=== PATIENT | male | born 1955 | race Caucasian/White ===

== ENCOUNTER 2016-11-09 09:27 | Emergency (ER) | payer MEDICARE, BC ==
--- NOTE | 2016-11-09 10:06 | EDM.PDOC ---
ED HISTORY OF PRESENT ILLNESS - General Chief Complaint: Cardiovascular Problem Stated Complaint: [facility] Time Seen by Provider: 11/09/16 09:56 Source: Reports: Patient History Limitations: Reports: No limitations - History of Present Illness INITIAL COMMENTS - FREE TEXT/NARRATIVE: pt arrived with a history of his defribulator has fired off 4 times. he was in the shower started to feel dizzy and his defirillator went off. The last time it went off was about 1 hour ago. Pt receives his care from the [facility]. Timing/Duration: Reports: Hour(s): Severity: moderate Location, General: Reports: chest, other ( defibrilator is going off) Associated Symptoms: Reports: denies other symptoms, other ( Pt was dizzy prior to the last time he was defibrilated. ) - Related Data Allergies/ADRs: Allergies Allergy/AdvReac Type Severity Reaction Status Date / Time acetaminophen [From [place]] Allergy Vomiting Verified 11/09/16 10:39 amiodarone Allergy Other Verified 11/09/16 10:39 amlodipine Allergy Other Verified 11/09/16 10:39 clopidogrel Allergy Cannot Verified 11/09/16 10:39 Remember ezetimibe [From [place]] Allergy Nausea Verified 11/09/16 10:39 flecainide Allergy Anaphylactic Verified 11/09/16 10:39 Shock hydrocodone [From [place]] Allergy Vomiting Verified 11/09/16 10:39 mexiletine Allergy Rash Verified 11/09/16 10:39 morphine Allergy Vomiting Verified 11/09/16 09:36 mushroom Allergy Vomiting Verified 11/09/16 10:39 rosuvastatin Allergy Pain Verified 11/09/16 10:39 sotalol Allergy Cannot Verified 11/09/16 10:39 Remember Vculuol-Lly-Twf Reductase Allergy Other Verified 11/09/16 10:39 Inhibitor Home Meds: Home Meds Acetaminophen 500 mg PO Q6H PRN 11/09/16 [History] Ascorbic Acid [C-1000] 1,000 mg PO BID 11/09/16 [History] Aspirin 81 mg PO DAILY 11/09/16 [History] Benzonatate [Benzonatate] 100 mg PO ASDIRECTED PRN 11/09/16 [History] Cholecalciferol (Vitamin D3) [Vitamin D] 1 tab PO DAILY 11/09/16 [History] Furosemide [Lasix] 20 mg PO DAILY 11/09/16 [History] Garlic [Garlic Oil] 1,500 mg PO ASDIRECTED 11/09/16 [History] Isosorbide Mononitrate [Imdur] 120 mg PO DAILY 11/09/16 [History] Metoprolol Succinate [Metoprolol Succinate] 100 mg PO DAILY 11/09/16 [History] Nitroglycerin [Nitrostat] 0.4 mg PO ASDIRECTED PRN 11/09/16 [History] Pantoprazole [Protonix] 40 mg PO BID 11/09/16 [History] Ranolazine [Ranexa] 1,000 mg PO BID 11/09/16 [History] Ubidecarenone [Q-Sorb Co Q-10] 400 mg PO DAILY 11/09/16 [History] Valsartan 20 mg PO BEDTIME 11/09/16 [History] traMADol HCl [Tramadol HCl] 50 mg PO ASDIRECTED PRN 11/09/16 [History] Past Medical History Cardiovascular History: Reports: Heart Failure, [place], Other (see below) Other Cardiovascular History: [place] x6, "gets v-tach alot" Respiratory History: Reports: COPD Gastrointestinal History: Reports: Other (see below) Other Gastrointestinal History: diverticulitis Musculoskeletal History: Reports: Arthritis, Fracture Endocrine/Metabolic History: Reports: Hypothyroidism, Other (see below) Other Endocrine/Metabolic History: not on medications for thyroid issues Hematologic History: Reports: Anticoagulation therapy Oncologic (Cancer) History: Reports: Other (see below) Other Oncologic History: skin cancer - Past Surgical History Cardiovascular Surgical History: Reports: AICD, Coronary artery bypass GI Surgical History: Reports: Colon Musculoskeletal Surgical History: Reports: Arthroscopic knee, Carpal tunnel Social & Family History - Tobacco Use Smoking Status *Q: Former Smoker - Recreational Drug Use Recreational Drug Use: No ED ROS GENERAL - Review of Systems Review Of Systems: See Below Constitutional: Reports: no symptoms HEENT: Reports: No symptoms Respiratory: Reports: no symptoms Cardiovascular: Reports: No symptoms Endocrine: Reports: no symptoms GI/Abdominal: Reports: No symptoms : Reports: no symptoms Musculoskeletal: Reports: no symptoms Skin: Reports: no symptoms Neurological: Reports: no symptoms ED EXAM, GENERAL - Physical Exam Exam: See Below Free Text/Narrative:: pt arrived with no discomfort. He was in the shower and got dizzy and the defiberlator went off and then it fired again 3 more times. Exam Limited By: No limitations General Appearance: alert, anxious Ears: normal TMs Nose: normal inspection Throat/Mouth: Normal inspection Head: atraumatic Neck: normal inspection Respiratory/Chest: no respiratory distress Cardiovascular: regular rate, rhythm, other (pt has frequent ectopics, ) GI/Abdominal: soft, non tender (Male) Exam: Deferred Rectal (Males) Exam: Deferred Back Exam: normal inspection Extremities: normal inspection Neurological: alert, oriented, normal cognition Psychiatric: normal affect Course - Vital Signs Last Recorded V/S: Last Vital Signs Temp 98.4 C H 11/09/16 09:30 Pulse 83 11/09/16 11:08 Resp 14 11/09/16 11:08 BP 126/82 11/09/16 11:08 Pulse Ox 95 11/09/16 11:08 - Orders/Labs/Meds Labs: Laboratory Tests 11/09/16 11/09/16 11/09/16 Range/Units 09:30 09:30 09:31 WBC 5.7 (4.5-11.0) K/uL RBC 4.67 (4.30-5.90) M/uL Hgb 14.3 (12.0-15.0) g/dL Hct 44.3 (40.0-54.0) % MCV 95 (80-98) fL MCH 31 (27-31) pg MCHC 32 (32-36) % Plt Count 235 (150-400) K/uL Neut % (Auto) 61 (36-66) % Lymph % (Auto) 23 L (24-44) % [place] % (Auto) 11 H (2-6) % Eos % (Auto) 5 H (2-4) % Baso % (Auto) 1 (0-1) % Sodium 135 L (140-148) mmol/L Potassium 3.7 (3.6-5.2) mmol/L Chloride 104 (100-108) mmol/L Carbon Dioxide 25 (21-32) mmol/L Anion Gap 9.7 (5.0-14.0) mmol/L BUN 19 H (7-18) mg/dL Creatinine 1.0 (0.8-1.3) mg/dL Est Cr Clr Drug Dosing 74.10 mL/min Estimated GFR (MDRD) > 60 (>60) Glucose 116 H (74-106) mg/dL Calcium 8.4 L (8.5-10.1) mg/dL Magnesium (1.8-2.4) mg/dL Total Bilirubin 0.4 (0.2-1.0) mg/dL AST 17 (15-37) U/L ALT 26 (12-78) U/L Alkaline Phosphatase 53 (46-116) U/L Troponin I < 0.017 (0.000-0.056) ng/mL Total Protein 7.2 (6.4-8.2) g/dL Albumin 3.9 (3.4-5.0) g/dL Globulin 3.3 (2.3-3.5) g/dL Albumin/Globulin Ratio 1.2 (1.2-2.2) Urine Color Urine Appearance Urine pH (4.5-8.0) Ur Specific [place] (1.008-1.030) Urine Protein (NEGATIVE) mg/dL Urine Glucose (UA) (NEGATIVE) mg/dL Urine Ketones (NEGATIVE) mg/dL Urine Occult Blood (NEGATIVE) Urine Nitrite (NEGAITVE) Urine Bilirubin (NEGATIVE) Urine Urobilinogen (NORMAL) mg/dL Ur Leukocyte Esterase (NEGATIVE) Urine RBC (0-5) Urine WBC (0-5) Ur Epithelial Cells Amorphous Sediment Urine Bacteria Urine Mucus 11/09/16 11/09/16 Range/Units 09:51 11:56 WBC (4.5-11.0) K/uL RBC (4.30-5.90) M/uL Hgb (12.0-15.0) g/dL Hct (40.0-54.0) % MCV (80-98) fL MCH (27-31) pg MCHC (32-36) % Plt Count (150-400) K/uL Neut % (Auto) (36-66) % Lymph % (Auto) (24-44) % [place] % (Auto) (2-6) % Eos % (Auto) (2-4) % Baso % (Auto) (0-1) % Sodium (140-148) mmol/L Potassium (3.6-5.2) mmol/L Chloride (100-108) mmol/L Carbon Dioxide (21-32) mmol/L Anion Gap (5.0-14.0) mmol/L BUN (7-18) mg/dL Creatinine (0.8-1.3) mg/dL Est Cr Clr Drug Dosing mL/min Estimated GFR (MDRD) (>60) Glucose (74-106) mg/dL Calcium (8.5-10.1) mg/dL Magnesium 1.8 (1.8-2.4) mg/dL Total Bilirubin (0.2-1.0) mg/dL AST (15-37) U/L ALT (12-78) U/L Alkaline Phosphatase (46-116) U/L Troponin I (0.000-0.056) ng/mL Total Protein (6.4-8.2) g/dL Albumin (3.4-5.0) g/dL Globulin (2.3-3.5) g/dL Albumin/Globulin Ratio (1.2-2.2) Urine Color Yellow Urine Appearance Slightly cloudy Urine pH 6.0 (4.5-8.0) Ur Specific [place] 1.010 (1.008-1.030) Urine Protein Negative (NEGATIVE) mg/dL Urine Glucose (UA) Normal (NEGATIVE) mg/dL Urine Ketones Negative (NEGATIVE) mg/dL Urine Occult Blood Negative (NEGATIVE) Urine Nitrite Negative (NEGAITVE) Urine Bilirubin Negative (NEGATIVE) Urine Urobilinogen Normal (NORMAL) mg/dL Ur Leukocyte Esterase Negative (NEGATIVE) Urine RBC 0-5 (0-5) Urine WBC 0-5 (0-5) Ur Epithelial Cells Rare Amorphous Sediment Rare Urine Bacteria Rare Urine Mucus Moderate - Re-Assessments/Exams Free Text/Narrative Re-Assessment/Exam: 11/09/16 11:01 pt had normal tropon and his electrolytes are normal. Departure - Departure Time of Disposition: 11:02 Disposition: DC/Tfer to Acute Hospital 02 Reason for Transfer *Q: Primary PCI Indicated Condition: fair Clinical Impression: Defibrillator discharge Referrals: PCP,None [Primary Care Provider] - Forms: ED Department Discharge Care Plan Goals: transfer to [facility]
--- NOTE | 2016-11-09 10:15 | CR ---
Portable chest Comparison: June 2012. Findings: There is a cardiac pacemaker with 2 intact leads. The heart and vascular structures are st able. There are no infiltrates or effusions. Impression: 1. No acute findings.
[2016-11-09 11:09] VITALS: BP 126/82
== END 2016-11-09 12:00 ==
LOC: JP.ED 09:27
DX: T82.198A Other mechanical complication of other cardiac electronic device, initial encounter (principal); I50.9 Heart failure, unspecified; I25.2 Old myocardial infarction; J44.9 Chronic obstructive pulmonary disease, unspecified; M19.90 Unspecified osteoarthritis, unspecified site; E03.9 Hypothyroidism, unspecified; Z87.891 Personal history of nicotine dependence; Z79.82 Long term (current) use of aspirin; Z88.5 Allergy status to narcotic agent; Z88.8 Allergy status to other drugs, medicaments and biological substances; Z79.899 Other long term (current) drug therapy; Z88.6 Allergy status to analgesic agent
CPT/HCPCS: 36415; 71010; 71010-26; 80053; 81001; 83735; 84484; 85025; 93005; 93010; 99285; 99285-25